=== PATIENT | female | born 1975 | race Asian ===

== ENCOUNTER → 2023-11-01 10:40 | Outpatient (REF) | payer BC, SELFPAY | LOC: HWWDC 10:40 | PROVIDERS: ATTENDING PHYSICIAN Family Medicine | DX: Z12.31 Encounter for screening mammogram for malignant neoplasm of breast (principal) | CPT/HCPCS: 77063; 77067 ==

== ENCOUNTER → 2025-02-07 09:46 | Outpatient (REF) | payer BC, SELFPAY | LOC: HWWDC 09:46 | PROVIDERS: ATTENDING PHYSICIAN Family Medicine | DX: Z12.31 Encounter for screening mammogram for malignant neoplasm of breast (principal) | CPT/HCPCS: 77063; 77067 ==